=== PATIENT | male | born 1975 | race Caucasian/White ===

== ENCOUNTER 2017-10-09 01:33 | Emergency (ER) | payer BC ==
[2017-10-09] MEDS ORDERED: Ketorolac 60 MG/2 ML SDV IM ONE (01:56)
--- NOTE | 2017-10-09 02:01 | EDM.PDOC ---
ED HPI GENERAL MEDICAL PROBLEM - General Chief Complaint: Lower Extremity Injury/Pain Stated Complaint: LEFT ANKLE PAIN Time Seen by Provider: 10/09/17 01:43 - History of Present Illness INITIAL COMMENTS - FREE TEXT/NARRATIVE: HISTORY AND PHYSICAL: History of present illness: The patient is a 42-year-old male with no stated medical problems who presents with complaints of sudden onset of pain at his posterior left ankle/Achilles tendon area that started when he got up from a seated position. 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 He said he was having a normal evening with no systemic complaints and he just got up to go get something and he felt sudden pain in the back of his ankle area. It's not in the heel or in the calf and if he tries to move his foot at the ankle there is discomfort. His toes and dorsal aspect of his foot are without tenderness. The pain originates at the posterior ankle near the Achilles tendon and radiates around. He has not noticed any swelling or discoloration of the area. He has no weakness that he is noted in the leg and he has no proximal tib-fib knee thigh or hip pain. Review of systems: As per history of present illness and below otherwise all systems reviewed and negative. Past medical history: As per history of present illness and as reviewed below otherwise noncontributory. Surgical history: As per history of present illness and as reviewed below otherwise noncontributory. Social history: No reported history of drug or alcohol abuse. Family history: As per history of present illness and as reviewed below otherwise noncontributory. Physical exam: Gen.: Well-developed well-nourished man who is nontoxic in clearly in the ED. Vital signs of the note by me HEENT: Atraumatic, normocephalic, negative for conjunctival pallor or scleral icterus, mucous membranes moist, throat clear, neck supple, nontender, trachea midline. Lungs: Clear to auscultation, breath sounds equal bilaterally, chest nontender. Heart: S1S2, regular rate and rhythm no overt murmurs Abdomen: Soft, nondistended, nontender. NABSs. Pelvis: Stable nontender. No lateral hip tenderness on the left Genitourinary: Deferred. Rectal: Deferred. Extremities: Atraumatic appearing throughout but there is some minimal soft tissue swelling without joint effusion at the left ankle. There is discrete tenderness at palpation of the insertion of Achilles tendon but on stress passively the tendon is intact. There is no ecchymosis or swelling posteriorly and there is no calcaneus or foot tenderness. The toes are intact and nontender. There is no calf swelling or tenderness. When I palpate the tendon there is discomfort and when asked the patient to actively engage by plantar or dorsiflexion he says it is very painful and reproduces his pain. Legs are, negative for cords or calf pain. Neurovascular unremarkable. Neuro: Awake, alert, oriented. Cranial nerves II through XII unremarkable. Cerebellum unremarkable. Motor and sensory unremarkable throughout. Exam nonfocal. Diagnostics: X-ray left ankle Therapeutics: Toradol, patient has his own crutches and size will be checked, ortho boot He is aware of need for follow-up with either podiatry or orthopedics. I will also give him [employer] [facility] some Coxsackie for pain tonight as he wants to drive himself home. Impression: Acute Achilles tendon/posterior ankle pain Definitive disposition and diagnosis as appropriate pending reevaluation and review of above. left ankle Pain Score (Numeric/FACES): 10 - Related Data Allergies Allergy/AdvReac Type Severity Reaction Status Date / Time No Known Allergies Allergy Verified 10/09/17 01:37 Home Meds: Home Meds . [No Known Home Meds] 10/09/17 [History] Past Medical History - Past Health History Medical/Surgical History: Denies Medical/Surgical History Social & Family History - Family History Family Medical History: Noncontributory - Tobacco Use Smoking Status *Q: Never Smoker - Caffeine Use Caffeine Use: Reports: Coffee Caffeine Use Comment: 2 cups daily - Recreational Drug Use Recreational Drug Use: No Review of Systems - Review of Systems Review Of Systems: ROS reveals no pertinent complaints other than HPI. ED EXAM, GENERAL - Physical Exam Exam: See Below (See dictation) Course - Vital Signs Last Recorded V/S: Last Vital Signs Temp 36.6 C 10/09/17 01:33 Pulse 78 10/09/17 01:33 Resp 20 10/09/17 01:33 BP 141/84 H 10/09/17 01:33 Pulse Ox 97 10/09/17 01:33 - Orders/Labs/Meds Orders: Active Orders 24 hr Category Date Time Status Ankle Min 3V Lt [CR] Stat Exams 10/09/17 01:56 Taken DME for Discharge [COMM] Stat Oth 10/09/17 02:29 Ordered Meds: Medications Discontinued Medications Generic Name Dose Route Start Last Admin Trade Name Maxx PRN Reason Stop Dose Admin Ketorolac Tromethamine 60 mg 10/09/17 01:56 10/09/17 02:04 Toradol IM 10/09/17 01:57 60 mg ONETIME ONE Administration Departure - Departure Time of Disposition: 02:34 Disposition: Home, Self-Care 01 Condition: Good Clinical Impression: Achilles tendon pain - Discharge Information Referrals: PCP,None [Primary Care Provider] - Forms: ED Department Discharge Additional Instructions: The following information is given to patients seen in the emergency department who are being discharged to home. This information is to outline your options for follow-up care. We provide all patients seen in our emergency department with a follow-up referral. The need for follow-up, as well as the timing and circumstances, are variable depending upon the specifics of your emergency department visit. If you don't have a primary care physician on staff, we will provide you with a referral. We always advise you to contact your personal physician following an emergency department visit to inform them of the circumstance of the visit and for follow-up with them and/or the need for any referrals to a consulting specialist. The emergency department will also refer you to a specialist when appropriate. This referral assures that you have the opportunity for followup care with a specialist. All of these measure are taken in an effort to provide you with optimal care, which includes your followup. Under all circumstances we always encourage you to contact your private physician who remains a resource for coordinating your care. When calling for followup care, please make the office aware that this follow-up is from your recent emergency room visit. If for any reason you are refused follow-up, please contact the [facility] emergency department at and ask to speak to the emergency department charge nurse. [facility] Podiatry [address] [place] [id number] Fax: [phone] Dr Jarvis Carter [address] [place], [place] [address], [place] [address] [facility]--Orthopedic clinic Professional Building [address] [place] [address] [address] [place] [address] Use crutches at all times and try not to put any weight on the foot for the next 5 days. Please call and follow-up with one of our subspecialists either podiatry or orthopedics for further care and evaluation as we discussed. Please use [id number] ibuprofen or Aleve and take the stronger pain medications you have been prescribed when you're home for sleep. You have been given Coxsackie from [employer] to use for this purpose. Ice and elevate as much as possible. Return to ER as needed and as discussed. Please make sure to loosen the ortho boot at sleep times. Wear the ortho boot at all times otherwise - My Orders Last 24 Hours: My Active Orders 10/09/17 01:56 Ankle Min 3V Lt [CR] Stat 10/09/17 02:29 DME for Discharge [COMM] Stat - Assessment/Plan Last 24 Hours: My Active Orders 10/09/17 01:56 Ankle Min 3V Lt [CR] Stat 10/09/17 02:29 DME for Discharge [COMM] Stat
--- NOTE | 2017-10-09 11:46 | CR ---
EXAM DATE: 10/09/17 PATIENT'S AGE: 42 Patient: STEVAN MERAZ Facility: [place], [place] Site . Site : [id number] Study: XRay Extremity Left Ankle [id number]/17/2017 2:22:21 AM Ordering Physician: Christo Horn Final Report: INDICATION: Left ankle pain, no injury. TECHNIQUE: Ankle radiograph 3 views COMPARISON: None FINDINGS: Bones: Alignment is normal. No acute fractures or aggressive osseous lesions seen. Joint spaces: The visualized tibiotalar, subtalar, and midfoot joints are unremarkable in appearance. No joint effusion is seen. Soft tissues: Kager`s fat pad is normal in appearance. The Achilles` tendon is normal in appearance. No radiopaque foreign bodies are noted. IMPRESSION: 1. No acute osseous injuries are identified. Dictated by Wade Mitchell MD @ 10/09/2017 2:25:48 AM Dictated by: Wade Mitchell MD @ 10/09/2017 02:25:51 (Electronic Signature) Report Signed by Proxy. [facility]
== END 2017-10-09 03:10 | disposition home or self-care (01) ==
LOC: MW.ED 01:33
DX: M25.572 Pain in left ankle and joints of left foot (principal)
CPT/HCPCS: 73610; 96372; 99283; J1885